=== PATIENT | female | born 1970 | race Asian ===

== ENCOUNTER 2018-12-28 12:33 | Inpatient (IN) ==
[2018-12-28] MEDS ORDERED: DiphenhydrAMINE HCL 50 MG/ML VIAL IV STA (13:36)
[2018-12-28] MEDS ORDERED: PROCHLORPERAZINE 1 ML IV ONE (13:36)
[2018-12-28] MEDS ORDERED: SODIUM CHLORIDE 0.9% 1000ML 1,000 ML IV ONE (13:36)
[2018-12-28 13:50] LABS: Basophils # (auto) 0.04 K/uL (0-0.2); Basophils % (auto) 0.4 %; Eosinophils # (auto) 0.31 K/uL (0-0.5); Eosinophils % (auto) 3.2 %; Hematocrit (blood only) 34.7 % (37-47); Hemoglobin 10.9 g/dL (12.0-16.0); Immature Granulocytes # (auto) 0.04 K/uL (0.00-0.02); Immature Granulocytes % (auto) 0.4 %; Lymphocytes # (auto) 2.54 K/uL (1.2-3.4); Lymphocytes % (auto) 26.2 %; Mean Corpuscular Hgb Conc 31.4 g/dL (32-36); Mean Corpuscular Volume 77.6 fL (80-100); Mean Platelet Volume 11.2 fL (7.4-10.4); Monocytes % (auto) 5.1 %; Neutrophils # (auto) 6.28 K/uL (1.4-6.5); Neutrophils % (auto) 64.7 %; Platelet Count 294 K/uL (130-400); RDW Coefficient of Variation 22.8 % (11.5-14.5); RDW Standard Deviation 64.7 fL (36.4-46.3); Red Blood Count 4.47 M/uL (4.2-5.4); White Blood Count 9.71 K/uL (4.8-10.8)
--- NOTE | 2018-12-28 13:56 | XRay Report ---
XR chest 1V portable HISTORY: Atypical chest pain COMPARISON: Chest 02/19/2018. FINDINGS: There are low lung volumes. The heart remains enlarged. Mild central pulmonary vascular con gestion without overt edema. No new focal lung consolidations to suggest pneumonia. No pleural effusi ons. No pneumothorax. IMPRESSION: Cardiomegaly with mild central pulmonary vascular congestion. This is similar to the prior study. Electronically signed by: Chris Barba M.D. 12/28/2018 1:55 PM
[2018-12-28 13:58] LABS: Alanine Aminotransferase 14 U/L (12-78); Albumin Level 3.5 gm/dl (3.4-5.0); Aspartate Aminotransferase 12 U/L (15-37); BUN Creatinine Ratio 11.4 (10-20); Blood Urea Nitrogen 8 mg/dl (7-18); Carbon Dioxide 22 mmol/L (21-32); Chloride 106 mmol/L (98-107); Creatinine Clr Calc Pharmacy 126.6 ml/min; Est GFR (African American) 121.6; Est GFR (Non-African American) 104.9; Glucose 130 mg/dl (70-99); Potassium 3.8 mmol/L (3.5-5.1); Sodium 136 mmol/L (136-145)
[2018-12-28 14:03] LABS: Albumin Globulin Ratio 0.8 (0.9-2); Alkaline Phosphatase 75 U/L (45-117); Bilirubin,Total 1.2 mg/dl (0.2-1); Globulin 4.4 gm/dl (2.5-4.0); Total Protein 7.9 gm/dl (6.4-8.2); Troponin I < 0.015 ng/ml (0-0.045)
[2018-12-28 14:04] LABS: INR 1.2 (0.9-1.1); Partial Thromboplastin Ratio 0.9; Partial Thromboplastin Time 24.8 Seconds (21.0-31.0); Prothrombin Time 12.4 Seconds (9.0-12.0)
[2018-12-28 14:11] LABS: Anisocytosis Present
[2018-12-28 14:23] LABS: Appearance Urine Clear (Clear); Bilirubin Urine Negative (Negative); Blood Urine Negative (Negative); Color Urine Yellow; Glucose Urine UA Negative (Negative); Ketones Urine Negative (Negative); Leukocyte Esterase Urine Negative (Negative); Nitrite Urine Negative (Negative); Protein Urine Negative (Negative); Specific Gravity Urine 1.005 (1.000-1.030); Urobilinogen Urine Negative (Negative); pH Urine >= 9.0 (4.5-7.5)
--- NOTE | 2018-12-28 14:35 | CT Scan Report ---
CT head/brain wo con CLINICAL HISTORY: 48 years-old Female with acute headache. Acute headache TECHNIQUE: Multiple axial CT images of the head were obtained without contrast. A dose lowering tech nique was utilized adhering to the principles of ALARA. CT DOSE: 1054.20 mGy.cm COMPARISON: CT cervical spine of same day FINDINGS: Cavum septum pellucidum. Study is mildly motion degraded. No acute intracranial hemorrhage, midline s hift, intracranial mass, hydrocephalus, territorial ischemia or abnormal extra-axial collection. The calvarium is intact. The paranasal sinuses, mastoid air cells, and middle ear cavities are clear . IMPRESSION: Mildly motion degraded exam without acute intracranial abnormality identified. The above report was generated using voice recognition software. It may contain grammatical, syntax o r spelling errors. Electronically signed by: Riaz Madrid M.D. 12/28/2018 2:34 PM
--- NOTE | 2018-12-28 14:41 | CT Scan Report ---
CT cervical spine wo con CLINICAL HISTORY: 48 years-old Female presenting with acute headache and neck pain. TECHNIQUE: Multidetector CT of the cervical spine was performed without the use of intravenous contra st. IV contrast: None. One or more dose lowering techniques were used consistent with the principles of ALARA (as low as reasonably achievable), including automatic exposure control, mA or kV adjustment to individual patient size, and/or use of iterative reconstruction. COMPARISON: None. CT DOSE (mGy.cm): The estimated cumulative dose is 1054.20. FINDINGS: [employer] Grade Teacher topogram: Unremarkable. Straightening of normal cervical lordosis likely positional. Vertebral bodies maintain normal height and alignment. Intervertebral disc heights preserved. No osseous spinal canal or neural foraminal jyoti rowing. No degenerative change. No acute fracture or subluxation. Visualized portion of the skull bas e intact. Paraspinal soft tissues normal. Lung apices clear. IMPRESSION: No acute osseous injury of the cervical spine. Electronically signed by: Royal Garland M.D. 12/28/2018 2:40 PM
[2018-12-28] MEDS ORDERED: dilTIAZem HCl 5 MG/ML 5 ML VIAL IV ONE (15:32)
[2018-12-28] MEDS ORDERED: dilTIAZem HCl 125 MG in DEXTROSE 5% 100 ML IV ONE (15:45)
--- NOTE | 2018-12-28 15:46 | Emergency Department Note ---
History of Present Illness General Chief Complaint: Headache Stated Complaint: HEADACHE, VOMITING, DIZZY Time Seen by Provider: 12/28/18 12:59 Source: patient Mode of arrival: ambulatory Limitations: language barrier (pt. daughter translates via phone) History of Present Illness Provider complaint: + headache Onset (ago): hour(s) 4 Onset description: + gradual Location: + diffuse Severity: severe Maximum Pain Intensity: 9 Current Pain Intensity: 5 Quality: + throbbing and + squeezing Relieved By: + rest and + dark room Exacerbated By: + exertion, + movement of head/neck, + light and + noise Context: + occurred at rest Associated symptoms: + nausea, + photophobia, + tingling, + numbness, + chest pain, + shortness of breath and + lightheadedness Treatments prior to arrival: + other (ASA) This 48-year-old female patient with significant past medical history of type 2 diabetes and hyperlipidemia, presents to the emergency department today with complaints of dizziness, headache, nausea, chest pain, and difficulty breathing. The patient states she awoke this morning feeling well. She got up to go to the bathroom to get ready for work and she developed dizziness, pressure in her head, and stumbled. She started to get ready for work, but the dizziness worsened. The patient states the symptoms were worse with rotating her head. At this time, she felt that her tongue was numb and either her upper or lower lip was numb. The patient states the left side of her body felt numb and tingling, but she continued to be able to lift and move the extremities. She went back to bed and rested for approximately 90 minutes. Upon arrival to the ED, the patient states the headache and numbness has improved. She continues to experience some mild numbness in her left fingers, but otherwise denies any symptoms in the arm and left leg. The patient states the chest pain is like a pressure sensation, similar in nature to what she has experienced in the past associated with anxiety. The patient states earlier, she had some blurry vision , but this has improved at this time. She denies any recent fall or trauma. She does report a history of questionable atrial fibrillation, but states she was then advised to discontinue the blood thinners after a monitor. She has not been on any blood thinners or aspirin consistently for several months. Of note, the history was obtained with the assistance of the patient's daughter via phone as a company doctor, as the patient does not speak fluent Setswana. The patient denies any recent fever, cough, neck pain, vomiting, diarrhea, constipation, abdominal pain, weakness, or other concerning symptoms. Home Medications Home Medications Medication Instructions Recorded Confirmed Type fluticasone propion-salmeterol 1 inh INHALATION BID 02/19/18 12/28/18 History hydroxyzine pamoate 25 mg PO HS PRN 02/19/18 12/28/18 History metformin 1,000 mg PO BID 30 Days #60 tab 02/20/18 12/28/18 Rx Basaglar KwikPen U-100 Insulin 26 unit SUBCUT BID 07/24/18 12/28/18 History Combivent Respimat 1 puff INHALATION QID PRN 07/24/18 12/28/18 History atorvastatin 20 mg PO QAM 07/24/18 12/28/18 History metoprolol tartrate 50 mg PO BID 07/24/18 12/28/18 History alprazolam 0 mg PO HS PRN 12/28/18 12/28/18 History Allergies Allergy/AdvReac Type Severity Reaction Status Date / Time Pork/Porcine Containing AdvReac Unknown Unknown Verified 12/28/18 15:17 Products red meat AdvReac Unknown Unknown Uncoded 12/28/18 15:17 Past Med/Surg History Medical History Hypokalemia Hyperbilirubinemia Type 2 diabetes mellitus Anxiety no meds Hyperlipidemia Atrial fibrillation with RVR (Acute) Anemia Asthma inhaler prn Chronic back pain Hypertension Social History Preferred Language: Danish Communication Ability: Effective Hearing Ability: Normal Quick Technician Required: Yes Beliefs That Will Affect Care: None marital status: Current Living Situation: Spouse current occupational status: employed current occupation: Self-employed with Feels Safe at Home: Yes Smoking Status: Never smoker Second Hand Exposure: Yes (as a child had relatives that smoked around her) ; Hx Alcohol Use: No Hx Substance Use: No Review of Systems A total of 10 systems reviewed and were otherwise negative Physical Exam Vital Signs Vital Signs - 24 hr 12/28/18 12:40 12/28/18 12:59 12/28/18 13:08 Temperature 36.5 C Temperature Source Oral Sepsis Recent Fever Within 48 Hours No Sepsis Action Taken by Nursing No Action Required Pulse Rate 73 55 L 55 L Pulse Rate [Apical] Pulse Rate from SpO2 Sensor Pulse Rhythm [Apical] Pulse Strength [Apical] Respiratory Rate 20 20 17 Respiratory Effort / Characteristics Respiratory Depth Shallow Respiratory Pattern Regular Blood Pressure 157/91 H 122/78 Blood Pressure [Left Arm] Blood Pressure Mean 113 92 Blood Pressure Mean [Left Arm] Blood Pressure Position [Left Arm] Pulse Oximetry 100 Oxygen Delivery Method Room Air 12/28/18 13:10 12/28/18 13:20 12/28/18 13:30 Temperature Temperature Source Sepsis Recent Fever Within 48 Hours Sepsis Action Taken by Nursing Pulse Rate 54 L 55 L 55 L Pulse Rate [Apical] Pulse Rate from SpO2 Sensor Pulse Rhythm [Apical] Pulse Strength [Apical] Respiratory Rate 14 12 17 Respiratory Effort / Characteristics Respiratory Depth Respiratory Pattern Blood Pressure Blood Pressure [Left Arm] Blood Pressure Mean Blood Pressure Mean [Left Arm] Blood Pressure Position [Left Arm] Pulse Oximetry Oxygen Delivery Method 12/28/18 13:40 12/28/18 13:50 12/28/18 14:28 Temperature Temperature Source Sepsis Recent Fever Within 48 Hours Sepsis Action Taken by Nursing Pulse Rate 58 L 65 62 Pulse Rate [Apical] Pulse Rate from SpO2 Sensor 61 Pulse Rhythm [Apical] Pulse Strength [Apical] Respiratory Rate 17 22 22 Respiratory Effort / Characteristics Respiratory Depth Respiratory Pattern Blood Pressure Blood Pressure [Left Arm] Blood Pressure Mean Blood Pressure Mean [Left Arm] Blood Pressure Position [Left Arm] Pulse Oximetry 98 Oxygen Delivery Method 12/28/18 14:30 12/28/18 14:40 12/28/18 14:50 Temperature Temperature Source Sepsis Recent Fever Within 48 Hours Sepsis Action Taken by Nursing Pulse Rate 72 59 L 90 Pulse Rate [Apical] Pulse Rate from SpO2 Sensor 69 62 81 Pulse Rhythm [Apical] Pulse Strength [Apical] Respiratory Rate 15 20 21 Respiratory Effort / Characteristics Respiratory Depth Respiratory Pattern Blood Pressure Blood Pressure [Left Arm] Blood Pressure Mean Blood Pressure Mean [Left Arm] Blood Pressure Position [Left Arm] Pulse Oximetry 99 98 98 Oxygen Delivery Method 12/28/18 14:57 12/28/18 14:58 12/28/18 15:00 Temperature Temperature Source Sepsis Recent Fever Within 48 Hours Sepsis Action Taken by Nursing Pulse Rate 81 79 Pulse Rate [Apical] 81 Pulse Rate from SpO2 Sensor 76 77 Pulse Rhythm [Apical] Regular Pulse Strength [Apical] Normal Respiratory Rate 15 18 18 Respiratory Effort / Characteristics Non-Labored Spontaneous Respiratory Depth Normal Respiratory Pattern Regular Blood Pressure 178/95 H Blood Pressure [Left Arm] 178/95 H Blood Pressure Mean 122 Blood Pressure Mean [Left Arm] 122 Blood Pressure Position [Left Arm] Lying Pulse Oximetry 96 98 98 Oxygen Delivery Method Room Air 12/28/18 15:10 12/28/18 15:21 12/28/18 15:26 Temperature Temperature Source Sepsis Recent Fever Within 48 Hours Sepsis Action Taken by Nursing Pulse Rate 65 86 Pulse Rate [Apical] Pulse Rate from SpO2 Sensor 65 80 96 H Pulse Rhythm [Apical] Pulse Strength [Apical] Respiratory Rate 18 24 Respiratory Effort / Characteristics Respiratory Depth Respiratory Pattern Blood Pressure 186/116 H Blood Pressure [Left Arm] Blood Pressure Mean 139 Blood Pressure Mean [Left Arm] Blood Pressure Position [Left Arm] Pulse Oximetry 95 95 96 Oxygen Delivery Method 12/28/18 15:30 12/28/18 15:40 12/28/18 15:41 Temperature Temperature Source Sepsis Recent Fever Within 48 Hours Sepsis Action Taken by Nursing Pulse Rate 132 H 111 H 126 H Pulse Rate [Apical] Pulse Rate from SpO2 Sensor 101 H 101 H 108 H Pulse Rhythm [Apical] Pulse Strength [Apical] Respiratory Rate 18 19 23 Respiratory Effort / Characteristics Respiratory Depth Respiratory Pattern Blood Pressure 125/91 Blood Pressure [Left Arm] Blood Pressure Mean 102 Blood Pressure Mean [Left Arm] Blood Pressure Position [Left Arm] Pulse Oximetry 96 96 96 Oxygen Delivery Method 12/28/18 15:44 12/28/18 15:50 12/28/18 16:00 Temperature Temperature Source Sepsis Recent Fever Within 48 Hours Sepsis Action Taken by Nursing Pulse Rate 121 H 114 H 123 H Pulse Rate [Apical] Pulse Rate from SpO2 Sensor 104 H 110 H 118 H Pulse Rhythm [Apical] Pulse Strength [Apical] Respiratory Rate 17 18 14 Respiratory Effort / Characteristics Respiratory Depth Respiratory Pattern Blood Pressure 165/110 H 174/132 H Blood Pressure [Left Arm] Blood Pressure Mean 128 146 Blood Pressure Mean [Left Arm] Blood Pressure Position [Left Arm] Pulse Oximetry 96 97 97 Oxygen Delivery Method 12/28/18 16:10 12/28/18 16:17 12/28/18 16:20 Temperature Temperature Source Sepsis Recent Fever Within 48 Hours Sepsis Action Taken by Nursing Pulse Rate 127 H 122 H 143 H Pulse Rate [Apical] Pulse Rate from SpO2 Sensor 104 H 100 H 120 H Pulse Rhythm [Apical] Pulse Strength [Apical] Respiratory Rate 17 19 19 Respiratory Effort / Characteristics Respiratory Depth Respiratory Pattern Blood Pressure 190/84 H Blood Pressure [Left Arm] Blood Pressure Mean 119 Blood Pressure Mean [Left Arm] Blood Pressure Position [Left Arm] Pulse Oximetry 96 97 97 Oxygen Delivery Method VITALS: Vitals are noted on the nurse's note and reviewed by myself. The patient is normotensive, afebrile, and no tachycardia noted. GENERAL: This is a 48-year-old female, in no acute distress, nondiaphoretic, well-developed well-nourished. The patient is resting comfortably in the bed. SKIN: The skin was without rashes, erythema, edema, or bruising. There is no tenting of the skin. Capillary reflex less than 2 seconds. HEAD: Normocephalic atraumatic. No tenderness to palpation. EARS: External auditory canals clear, tympanic membranes pearly sethi without erythema or effusion bilaterally. Negative santiago sign. No hemotympanum. EYES: Pupils equal round and reactive to light and accommodation. Conjunctivae without injection, sclerae without icterus. Extraocular movements intact. No nystagmus noted. No swelling or discoloration of the tissue surrounding the eyes. Mild light sensitivity. NOSE: Patent, turbinates without inflammation or discharge. No sinus tenderness. MOUTH: Mucous membranes moist. Tonsils are not enlarged. Pharynx without erythema or exudate. Uvula midline. Airway patent. Tongue does not deviate. NECK: Supple without nuchal rigidity. No lymphadenopathy. No thyromegaly. Cervical spine is nontender. No JVD. HEART: Regular rate and rhythm without murmurs gallops or rubs. LUNGS: Clear to auscultation bilaterally without wheezes, rales or rhonchi. No dullness to percussion. No retractions or accessory muscle use. ABDOMEN: Positive bowel sounds x 4. Normal tympanic percussion. Soft, nontender, without masses or organomegaly. Alfred sign negative. No guarding or rebound tenderness. MUSCULOSKELETAL: No muscle atrophy, erythema, or edema noted. Full range of motion without joint tenderness in all extremities. No tenderness to palpation. Normal gait. Strength 5/5 throughout. NEURO: Patient was alert and oriented to person place and time. Normal sen sation to light and sharp touch in all extremities. Deep tendon reflexes 2+ throughout. No focal neurological deficits. Cranial nerves II through XII grossly intact. Normal cerebellar function. Course The patient was seen and evaluated as above. IV access obtained, labs drawn. Patient medicated with IV fluids, Benadryl, Compazine. Imaging performed and reviewed by myself and radiologist as above. Labs reviewed by myself. I was called by the RN to reassess the patient as she was complaining of left sided muscle spasms and paresthesias. I discussed the findings with the patient at bedside. She was reassessed. There are left-sided muscle spasms in both of the extremities. The patient's headache has significantly improved. Her dizziness has significantly improved. She denies any significant nausea. I discussed the case with my attending. We did elect to order an MRI. I updated the patient. I was contacted by the nurse at this time that the patient's heart rate has increased and it appears that she is in A. fib. I reassessed the patient. She is complaining of some chest pain. Heart rate is in the 140s. Blood pressure is elevated at 180 systolic. EKG being performed by RN at this time. I contacted Dr. Snyder and asked him to evaluate the patient, given this new finding. He did accompany me to the bedside. EKG reviewed by myself and Dr. Snyder and shows atrial fibrillation RVR. The patient was given 10 mg IV Cardizem. Heart rate and blood pressure did improve. Patient was started on 10 mg/h IV Cardizem drip. I spoke with the telephonic case manager. Recommended admission for A. fib RVR and strokelike symptoms. I contacted the [facility] hospitalist. Spoke with OLIVERIO Roland. She agreed to see and evaluate the patient. Please see hospitalist dictation regarding ongoing management care of this patient. Administered Medications Diltiazem HCl 125 mg/ Dextrose 125 mls @ 10 mls/hr IV .[id number] ONE; Protocol Stop: 12/29/18 04:14 Last Titration: 12/28/18 16:21 Dose: 15 mg/hr, 15 mls/hr Documented by: [id number] Admin: 12/28/18 15:58 Dose: 10 mg/hr, 10 mls/hr Documented by: [id number] Cosigned by: [id number] Discontinued Medications Diltiazem HCl (Cardizem) Confirm Administered Dose 25 mg IV .STK-MED ONE Stop: 12/28/18 15:33 Last Increment: 12/28/18 15:36 Dose: 10 mg Documented by: [id number] Cosigned by: [id number] Diphenhydramine HCl (Benadryl) 25 mg IV NOW STA Stop: 12/28/18 13:37 Last Admin: 12/28/18 14:02 Dose: 25 mg Documented by: [id number] Prochlorperazine (Compazine) 1 mls @ 1 mls/min IV ONE ONE Stop: 12/28/18 13:37 Last Admin: 12/28/18 14:02 Dose: 1 mls/min Documented by: [id number] Sodium Chloride (Nss 1000ml) 1,000 mls @ 999 mls/hr IV .[id number] ONE Stop: 12/28/18 14:36 Last Infusion: 12/28/18 15:49 Dose: 0 mls/hr Documented by: [id number] Admin: 12/28/18 14:02 Dose: 999 mls/hr Documented by: [id number] Medical Decision Making Differential Diagnosis + migraine, + tension headache, + subarachnoid hemorrhage, + headache, + meningitis, + sinusitis, + postconcussion syndrome, + normal pressure hydrocephalus, + CVA, + ICH, + SAH, + encephalitis and + tumor In addition to the above, lyme disease, thyroid abnormality, cardiac ischemia, aortic dissection, pulmonary embolism, pneumonia, pneumothorax, musculoskeletal, infections, gastrointestinal, as well as others were entertained. Home Medications Current Medication List: was personally reviewed by me Laboratory Data Attestation: I reviewed the patient's lab results. No leukocytosis, significant anemia, thrombocytopenia. Renal, hepatic function, and electrolytes without significant abnormality. INR mildly elevated 1.2. Troponin negative. ESR elevated at 71. TSH 1.450. Lyme disease testing negative. Urinalysis negative for evidence of blood or infection. Result diagrams: 12/28/18 12:56 12/28/18 12:56 Lab Results 12/28/18 12/28/18 12/28/18 Range/Units 12:56 12:56 12:56 WBC 9.71 (4.8-10.8) K/uL RBC 4.47 (4.2-5.4) M/uL Hgb 10.9 L (12.0-16.0) g/dL Hct 34.7 L (37-47) % MCV 77.6 L (80-100) fL MCH 24.4 L (25-34) pg MCHC 31.4 L (32-36) g/dL RDW Std Deviation 64.7 H (36.4-46.3) fL RDW Coeff of Jimenez 22.8 H (11.5-14.5) % Plt Count 294 (130-400) K/uL MPV 11.2 H (7.4-10.4) fL Immature Gran % (Auto) 0.4 % Neut % (Auto) 64.7 % Lymph % (Auto) 26.2 % [place] % (Auto) 5.1 % Eos % (Auto) 3.2 % Baso % (Auto) 0.4 % Immature Gran # (Auto) 0.04 H (0.00-0.02) K/uL Neut # (Auto) 6.28 (1.4-6.5) K/uL Lymph # (Auto) 2.54 (1.2-3.4) K/uL [place] # (Auto) 0.50 (0.11-0.59) K/uL Eos # (Auto) 0.31 (0-0.5) K/uL Baso # (Auto) 0.04 (0-0.2) K/uL Anisocytosis Present ESR (0-21) mm/hr PT 12.4 H (9.0-12.0) Seconds INR 1.2 H (0.9-1.1) APTT 24.8 (21.0-31.0) Seconds PTT Ratio 0.9 Sodium 136 (136-145) mmol/L Potassium 3.8 (3.5-5.1) mmol/L Chloride 106 (98-107) mmol/L Carbon Dioxide 22 (21-32) mmol/L Anion Gap 8.0 (3-11) BUN 8 (7-18) mg/dl Creatinine 0.68 (0.6-1.2) mg/dl Est Cr Clr Drug Dosing 126.6 ml/min Est GFR ( Amer) 121.6 Est GFR (Non-Af Amer) 104.9 BUN/Creatinine Ratio 11.4 (10-20) Glucose 130 H (70-99) mg/dl Calcium 9.0 (8.5-10.1) mg/dl Magnesium 2.0 (1.8-2.4) mg/dl Total Bilirubin 1.2 H (0.2-1) mg/dl AST 12 L (15-37) U/L ALT 14 (12-78) U/L Alkaline Phosphatase 75 (45-117) U/L Troponin I < 0.015 (0-0.045) ng/ml Total Protein 7.9 (6.4-8.2) gm/dl Albumin 3.5 (3.4-5.0) gm/dl Globulin 4.4 H (2.5-4.0) gm/dl Albumin/Globulin Ratio 0.8 L (0.9-2) TSH (0.300-4.500) uIu/ml Urine Color Urine Appearance (Clear) Urine pH (4.5-7.5) Ur Specific [place] (1.000-1.030) Urine Protein (Negative) Urine Glucose (UA) (Negative) Urine Ketones (Negative) Urine Blood (Negative) Urine Nitrite (Negative) Urine Bilirubin (Negative) Urine Urobilinogen (Negative) Ur Leukocyte Esterase (Negative) Lyme Disease IgG Ab (Negative) Lyme Disease IgM Ab (Negative) 12/28/18 12/28/18 12/28/18 Range/Units 12:56 12:56 12:56 WBC (4.8-10.8) K/uL RBC (4.2-5.4) M/uL Hgb (12.0-16.0) g/dL Hct (37-47) % MCV (80-100) fL MCH (25-34) pg MCHC (32-36) g/dL RDW Std Deviation (36.4-46.3) fL RDW Coeff of Jimenez (11.5-14.5) % Plt Count (130-400) K/uL MPV (7.4-10.4) fL Immature Gran % (Auto) % Neut % (Auto) % Lymph % (Auto) % [place] % (Auto) % Eos % (Auto) % Baso % (Auto) % Immature Gran # (Auto) (0.00-0.02) K/uL Neut # (Auto) (1.4-6.5) K/uL Lymph # (Auto) (1.2-3.4) K/uL [place] # (Auto) (0.11-0.59) K/uL Eos # (Auto) (0-0.5) K/uL Baso # (Auto) (0-0.2) K/uL Anisocytosis ESR 71 H (0-21) mm/hr PT (9.0-12.0) Seconds INR (0.9-1.1) APTT (21.0-31.0) Seconds PTT Ratio Sodium (136-145) mmol/L Potassium (3.5-5.1) mmol/L Chloride (98-107) mmol/L Carbon Dioxide (21-32) mmol/L Anion Gap (3-11) BUN (7-18) mg/dl Creatinine (0.6-1.2) mg/dl Est Cr Clr Drug Dosing ml/min Est GFR ( Amer) Est GFR (Non-Af Amer) BUN/Creatinine Ratio (10-20) Glucose (70-99) mg/dl Calcium (8.5-10.1) mg/dl Magnesium (1.8-2.4) mg/dl Total Bilirubin (0.2-1) mg/dl AST (15-37) U/L ALT (12-78) U/L Alkaline Phosphatase (45-117) U/L Troponin I (0-0.045) ng/ml Total Protein (6.4-8.2) gm/dl Albumin (3.4-5.0) gm/dl Globulin (2.5-4.0) gm/dl Albumin/Globulin Ratio (0.9-2) TSH 1.450 (0.300-4.500) uIu/ml Urine Color Urine Appearance (Clear) Urine pH (4.5-7.5) Ur Specific [place] (1.000-1.030) Urine Protein (Negative) Urine Glucose (UA) (Negative) Urine Ketones (Negative) Urine Blood (Negative) Urine Nitrite (Negative) Urine Bilirubin (Negative) Urine Urobilinogen (Negative) Ur Leukocyte Esterase (Negative) Lyme Disease IgG Ab Negative (Negative) Lyme Disease IgM Ab Negative (Negative) 12/28/18 Range/Units 14:00 WBC (4.8-10.8) K/uL RBC (4.2-5.4) M/uL Hgb (12.0-16.0) g/dL Hct (37-47) % MCV (80-100) fL MCH (25-34) pg MCHC (32-36) g/dL RDW Std Deviation (36.4-46.3) fL RDW Coeff of Jimenez (11.5-14.5) % Plt Count (130-400) K/uL MPV (7.4-10.4) fL Immature Gran % (Auto) % Neut % (Auto) % Lymph % (Auto) % [place] % (Auto) % Eos % (Auto) % Baso % (Auto) % Immature Gran # (Auto) (0.00-0.02) K/uL Neut # (Auto) (1.4-6.5) K/uL Lymph # (Auto) (1.2-3.4) K/uL [place] # (Auto) (0.11-0.59) K/uL Eos # (Auto) (0-0.5) K/uL Baso # (Auto) (0-0.2) K/uL Anisocytosis ESR (0-21) mm/hr PT (9.0-12.0) Seconds INR (0.9-1.1) APTT (21.0-31.0) Seconds PTT Ratio Sodium (136-145) mmol/L Potassium (3.5-5.1) mmol/L Chloride (98-107) mmol/L Carbon Dioxide (21-32) mmol/L Anion Gap (3-11) BUN (7-18) mg/dl Creatinine (0.6-1.2) mg/dl Est Cr Clr Drug Dosing ml/min Est GFR ( Amer) Est GFR (Non-Af Amer) BUN/Creatinine Ratio (10-20) Glucose (70-99) mg/dl Calcium (8.5-10.1) mg/dl Magnesium (1.8-2.4) mg/dl Total Bilirubin (0.2-1) mg/dl AST (15-37) U/L ALT (12-78) U/L Alkaline Phosphatase (45-117) U/L Troponin I (0-0.045) ng/ml Total Protein (6.4-8.2) gm/dl Albumin (3.4-5.0) gm/dl Globulin (2.5-4.0) gm/dl Albumin/Globulin Ratio (0.9-2) TSH (0.300-4.500) uIu/ml Urine Color Yellow Urine Appearance Clear (Clear) Urine pH >= 9.0 H (4.5-7.5) Ur Specific [place] 1.005 (1.000-1.030) Urine Protein Negative (Negative) Urine Glucose (UA) Negative (Negative) Urine Ketones Negative (Negative) Urine Blood Negative (Negative) Urine Nitrite Negative (Negative) Urine Bilirubin Negative (Negative) Urine Urobilinogen Negative (Negative) Ur Leukocyte Esterase Negative (Negative) Lyme Disease IgG Ab (Negative) Lyme Disease IgM Ab (Negative) Imaging Data Radiologist's Impression: XR chest 1V portable HISTORY: Atypical chest pain COMPARISON: Chest 02/19/2018. FINDINGS: There are low lung volumes. The heart remains enlarged. Mild central pulmonary vascular congestion without overt edema. No new focal lung consolidations to suggest pneumonia. No pleural effusions. No pneumothorax. IMPRESSION: Cardiomegaly with mild central pulmonary vascular congestion. This is similar to the prior study. Electronically signed by: Chris Barba M.D. 12/28/2018 1:[address] head/brain wo con CLINICAL HISTORY: 48 years-old Female with acute headache. Acute headache TECHNIQUE: Multiple axial CT images of the head were obtained without contrast. A dose lowering technique was utilized adhering to the principles of ALARA. CT DOSE: 1054.20 mGy.cm COMPARISON: CT cervical spine of same day FINDINGS: Cavum septum pellucidum. Study is mildly motion degraded. No acute intracranial hemorrhage, midline shift, intracranial mass, hydrocephalus, territorial ischemia or abnormal extra-axial collection. The calvarium is intact. The paranasal sinuses, mastoid air cells, and middle ear cavities are clear. IMPRESSION: Mildly motion degraded exam without acute intracranial abnormality identified. The above report was generated using voice recognition software. It may contain grammatical, syntax or spelling errors. Electronically signed by: Riaz Madrid M.D. 12/28/2018 2:[address] cervical spine wo con CLINICAL HISTORY: 48 years-old Female presenting with acute headache and neck pain. TECHNIQUE: Multidetector CT of the cervical spine was performed without the use of intravenous contrast. IV contrast: None. One or more dose lowering techniques were used consistent with the principles of ALARA (as low as reasonably achievable), including automatic exposure control, mA or kV adjustment to individual patient size, and/or use of iterative reconstruction. COMPARISON: None. CT DOSE (mGy.cm): The estimated cumulative dose is 1054.20. FINDINGS: Manager Of Tax topogram: Unremarkable. Straightening of normal cervical lordosis likely positional. Vertebral bodies maintain normal height and alignment. Intervertebral disc heights preserved. No osseous spinal canal or neural foraminal narrowing. No degenerative change. No acute fracture or subluxation. Visualized portion of the skull base intact. Paraspinal soft tissues normal. Lung apices clear. IMPRESSION: No acute osseous injury of the cervical spine. Electronically signed by: Royal Garland M.D. 12/28/2018 2:40 PM ECG Data Attestation: I personally reviewed and interpreted this ECG as follows: Indication: chest pain Rate (beats per minute): 60 Rhythm: normal sinus Findings: + T-wave inversion (anterolateral leads); no ST elevation and no acute ischemic change Comparison ECG Date: from (03/09) Change: the following changes noted (inverted T-waves now present) Additional Comments: Repeat EKG performed when elevated HR noticed and showed afib RVR ventricular rate of 120 with no acute ischemic changes. Blood Pressure Blood Pressure Findings: Elevated blood pressure Blood Pressure Disposition: further management by hospitalist Head Trauma GCS Score: 15 MDM Narrative This 48-year-old patient presents emergency department today complaining of headache, dizziness, nausea primarily. She had onset approximately 4 hours prior to arrival. Her symptoms have significantly improved since arrival. She has not had any objective weakness and is a stroke scale 0, per my examination. Initial concern was for atypical migraine, however I was concerned for stroke given the patient's history and symptoms. The patient was initially treated with Benadryl, Compazine, and IV fluids. Labs reviewed and without significant abnormality. Very mild anemia noted. Imaging reviewed with no significant acute changes, no evidence of ICH, or CT evidence of stroke. The patient was reassessed and developed some improvement in her headache, dizziness, nausea, but is now complaining of muscle spasms and the left extremities. I am still concerned for possible stroke, so elected to order an MRI of the brain for evaluation. After this order placed, I received a call from the nurse that the patient had developed A. fib with RVR and tachycardia at 140 bpm. I did immediately evaluate the patient. She is experiencing some chest pain and dyspnea at this time as well as palpitations. I discussed the case with Dr. Snyder, who did also see and evaluate the patient immediately. The patient was given 10 mg IV Cardizem which did improve her blood pressure and heart rate, and a Cardizem drip initiated. I have increased suspicion for stroke at this time given the likelihood that the patient has had untreated intermittent atrial fibrillation, as her blood thinners were discontinued over the past year. The patient will be admitted to the hospitalist service for evaluation of strokelike symptoms and new onset A. fib RVR. She was admitted to the hospitalist service prior to MRI results. The chart was completed utilizing [employer] voice recognition software. Grammatical errors, random word insertions, pronoun errors, and incomplete sentences are an occasional consequence of this system due to software limitations, ambient noise, and hardware issues. Any formal questions or concerns about the content, text, or information contained within the body of this dictation should be directly addressed to the provider for clarification. Impression & Plan Atrial fibrillation with RVR, Stroke-like symptom, Hyperlipidemia, Type 2 diabetes mellitus, Headache Critical Care Time Critical Care Time: Yes Total Critical Care Time: 45 I have personally spent greater than 45 minutes of critical care time in the direct management of this patient. This includes bedside care, interpretation of diagnostic studies, and testing, discussion with consultants, patient, and family members, and other required patient management activities. This 45 minutes is in excess of all separately billable procedures. Discharge Plan Visit Data Chief Complaint: Headache Stated Complaint: HEADACHE, VOMITING, DIZZY ED Provider: Randy Snyder ED Midlevel Provider: Nirmala Moore Discharge Problem: Atrial fibrillation with RVR, Stroke-like symptom, Hyperlipidemia, Type 2 diabetes mellitus, Headache Patient Disposition: Admitted As Inpatient Condition: Good Forms Stand Alone Forms: [email or web address] Prescriptions Prescriptions: No Action fluticasone propion-salmeterol 250-50 mcg/dose Blister With Device 1 inh INHALATION BID RF: 0 hydroxyzine pamoate 25 mg Capsule 25 mg PO HS PRN (Reason: Itching) RF: 0 metformin 1,000 mg Tablet 1,000 mg PO BID 30 Days Qty: 60 RF: 2 alprazolam 0.25 mg Tablet PO HS PRN (Reason: Anxiety) RF: 0 metoprolol tartrate 25 mg Tablet 50 mg PO BID RF: 0 atorvastatin 20 mg tablet 20 mg PO QAM RF: 0 Basaglar KwikPen U-100 Insulin 100 unit/mL (3 mL) Insulin Pen 26 unit SUBCUT BID RF: 0 Combivent Respimat 20-100 mcg/actuation Mist 1 puff INHALATION QID PRN (Reason: Wheezing) RF: 0 Referrals Referrals: Kemi Crystal MD [Primary Care Provider] -
--- NOTE | 2018-12-28 15:46 | Emergency Department Note ---
ED Visit Note I did evaluate and examine this patient myself. I did guide management for the patient. I agree with the PA's assessment as discussed. Please see the PAs dictation for further details. I was called to the bedside by the PA because the patient developed tachycardia. Twelve-lead EKG per my interpretation demonstrates atrial fibrillation with RVR. She did have normal sinus rhythm prior to that. Review of the old chart demonstrated that she did have atrial fibrillation on a prior visit here. She is not on any blood thinners. She has been having chest pain since this morning. I did independently review the CT scan and blood work. There is no evidence of stroke on CT of the head. Blood work shows a negative troponin. Patient was given a bolus of Cardizem which slowed her heart rate down. She is subsequently placed on a Cardizem drip. She will be admitted to the hospital for further care and evaluation for her A. fib with RVR and strokelike symptoms. .
[2018-12-28 16:16] LABS: Lyme Ab IgG w/WB Rflx Negative (Negative); Lyme Ab IgM w/WB Rflx Negative (Negative)
--- NOTE | 2018-12-28 17:32 | History & Physical Report ---
Date of Service December 28, 2018 Assessment & Plan (1) Paroxysmal atrial fibrillation: Paroxysmal atrial fibrillation with rapid ventricular response. Lytes & TSH normal. [id number] = 2. Neurologic symptoms may or may not be related to PAF. She did not take her morning dose of metoprolol. Continue diltiazem infusion. Resume metoprolol tartrate 50 mg twice daily. IV heparin. ? long-term anticoagulation. Consult Cardiology. (2) Stroke-like symptom: Left-sided paresthesia associated with headache. Possible migraine. Consider ischemic stroke. PAF as discussed above. Head CT negative. MRI pending. Symptoms improved in ED. Passed dysphagia screen. Took aspirin at home; continue aspirin 81 mg daily. Check lipid profile. Check carotid duplex and echo. PT/OT/HYDRAULIC MINER evaluations. Consult Neurology. (3) Hypertension: Continue metoprolol. (4) Asthma: Pulmonary status stable. (5) Type 2 diabetes mellitus: Diabetes mellitus type 2, managed with metformin and insulin. Random glucose 130. Check hemoglobin A1c. Lantus/NovoLog per protocol. (6) Hyperlipidemia: Check lipid profile. Continue atorvastatin. Increase dose to high intensity level if ischemic stroke confirmed. (7) DVT prophylaxis: IV heparin ordered for atrial fibrillation. Ambulate. (8) Discharge planning issues: Anticipated discharge to home. Internal Medicine follow-up with Dr. Hermelinda Ramirez. History of Present Illness Chief Complaint: left-sided paresthesiae Primary Care Provider: Kemi Crystal MD 48-year-old female followed by Dr. Kemi Crystal for Internal Medicine. History of paroxysmal atrial fibrillation, diabetes mellitus type 2, and other problems noted below. Hospitalized with atrial fibrillation in January 2018. Hypokalemic at that time. Managed with diltiazem infusion and converted to sinus rhythm. Transition to beta-blockade with metoprolol. Not anticoagulated because of low [id number] score. This morning around 9:30 AM she developed left-sided paresthesia and possible left-sided weakness. Symptoms associated with headache and dizziness. Also noted intermittent chest pressure, palpitations, and mild dyspnea. She took a low-dose aspirin. Came to the ED for evaluation. In the ED her symptoms improved without further intervention. Cardiac rhythm at time of presentation was normal sinus rhythm, but around 15;00 she was noted to be in atrial fibrillation with a rapid ventricular response. Cardizem infusion initiated. Allergies Allergy/AdvReac Type Severity Reaction Status Date / Time Pork/Porcine Containing AdvReac Unknown Unknown Verified 12/28/18 15:17 Products red meat AdvReac Unknown Unknown Uncoded 12/28/18 15:17 Home Medications Home Medications Medication Instructions Recorded Confirmed Type fluticasone propion-salmeterol 1 inh INHALATION BID 02/19/18 12/28/18 History hydroxyzine pamoate 25 mg PO HS PRN 02/19/18 12/28/18 History metformin 1,000 mg PO BID 30 Days #60 tab 02/20/18 12/28/18 Rx Basaglar KwikPen U-100 Insulin 26 unit SUBCUT BID 07/24/18 12/28/18 History Combivent Respimat 1 puff INHALATION QID PRN 07/24/18 12/28/18 History atorvastatin 20 mg PO QAM 07/24/18 12/28/18 History metoprolol tartrate 50 mg PO BID 07/24/18 12/28/18 History escitalopram oxalate 10 mg PO DAILY 12/28/18 12/28/18 History Past Med/Surg History Medical History Paroxysmal atrial fibrillation (Chronic) Hypertension (Chronic) Asthma (Chronic) inhaler prn Anemia (Chronic) Chronic back pain (Chronic) Type 2 diabetes mellitus (Chronic) Anxiety (Chronic) no meds Hyperlipidemia (Chronic) Atrial fibrillation with RVR (Acute) Surgical History No history of previous surgery (Chronic) Family History Mother Diabetes Father Hypertension Brother Heart disease Other No family history of adverse response to anesthesia No pertinent family history Social History Preferred Language: Malawian Communication Ability: Effective Hearing Ability: Normal Medical Staff Manager Required: Yes Beliefs That Will Affect Care: None marital status: Current Living Situation: Spouse current occupational status: employed current occupation: Self-employed with [employer] Safe at Home: Yes Smoking Status: Never smoker Second Hand Exposure: Yes (as a child had r elatives that smoked around her) ; Hx Alcohol Use: No Hx Substance Use: No Review of Systems Constitutional: no fever and no weight loss Eyes: no diplopia and no worsening vision Ear, Nose, Mouth, Throat: no nasal congestion, no sinus pain/pressure and no sore throat Respiratory: as per Subjective / HPI; no cough Cardiovascular: as per Subjective / HPI Gastrointestinal: + nausea; no vomiting, no constipation, no diarrhea/loose stools, no blood in stools and no melena Genitourinary: no dysuria and no hematuria Musculoskeletal: no joint pain and no myalgia Integumentary: no rash and no new lesions Neurologic: no headache(s) Endocrine: no polydipsia and no polyuria blood sugars well controlled Hematologic / Lymphatic: no easy bleeding, no easy bruising and no lymphadenopathy Physical Exam Constitutional: WD/WN, vitals as above no acute distress Eyes: PERRL, conjunctivae normal, anicteric sclerae ENMT: external ear and nose normal, oropharynx normal Neck: trachea midline, no thyromegaly Respiratory: normal respiratory effort, lungs clear to auscultation Cardiovascular: Rate/Rhythm: + irregularly irregular Heart Sounds: no gallop, no murmur and no cardiac rub Vessels: no JVD Extremities: normal capillary refill; no calf tenderness and no edema Gastrointestinal (Abdomen): normal bowel sounds, soft, nontender, no hepatosplenomegaly Musculoskeletal: Head/Neck/Chest: neck supple Extremities: strength 5/5 throughout; no cyanosis and no clubbing Skin: no rashes, warm and dry Neurologic: PERRL, EOMI no facial palsy no dysarthria or aphasia motor strength 5/5 bilat sensation to pin prick grossly intact bilat no difficulty with finger to nose or heal to wynn patellar DTR's 2/2 bilat Psychiatric: Orientation: alert and oriented x 3 Affect: euthymic affect Lymphatic: no cervical lymphadenopathy Results & Data Vital Signs (Past 12 Hours) Vital Signs Temp Pulse Pulse Resp BP BP Pulse Ox 12/28/18 17:20 123 H 16 97 12/28/18 17:15 118 H 19 125/95 94 12/28/18 17:10 122 H 20 94 12/28/18 17:05 102 H 19 149/113 H 94 12/28/18 17:00 127 H 26 H 12/28/18 16:50 117 H 13 98 12/28/18 16:45 120 H 24 164/127 H 97 12/28/18 16:40 76 16 95 12/28/18 16:34 125 H 12 99 12/28/18 16:33 114 H 22 140/113 H 97 12/28/18 16:31 121 H 14 97 12/28/18 16:30 113 H 19 12/28/18 16:20 143 H 19 97 12/28/18 16:17 122 H 19 190/84 H 97 12/28/18 16:10 127 H 17 96 12/28/18 16:00 123 H 14 174/132 H 97 12/28/18 15:50 114 H 18 97 12/28/18 15:44 121 H 17 165/110 H 96 12/28/18 15:41 126 H 23 96 12/28/18 15:40 111 H 19 125/91 96 12/28/18 15:30 132 H 18 96 12/28/18 15:26 86 24 186/116 H 96 12/28/18 15:21 95 12/28/18 15:10 65 18 95 12/28/18 15:00 79 18 98 12/28/18 14:58 81 18 178/95 H 98 12/28/18 14:57 81 15 178/95 H 96 12/28/18 14:50 90 21 98 12/28/18 14:40 59 L 20 98 12/28/18 14:30 72 15 99 12/28/18 14:28 62 22 98 12/28/18 13:50 65 22 12/28/18 13:40 58 L 17 12/28/18 13:30 55 L 17 12/28/18 13:20 55 L 12 12/28/18 13:10 54 L 14 12/28/18 13:08 55 L 17 12/28/18 12:59 55 L 20 122/78 12/28/18 12:40 36.5 C 73 20 157/91 H 100 Laboratory Results Short CBC 12/28/18 Range/Units 12:56 WBC 9.71 (4.8-10.8) K/uL Hgb 10.9 L (12.0-16.0) g/dL Hct 34.7 L (37-47) % Plt Count 294 (130-400) K/uL BMP 12/28/18 12:56 Sodium 136 Potassium 3.8 Chloride 106 Carbon Dioxide 22 BUN 8 Creatinine 0.68 Glucose 130 H Calcium 9.0 Cardiac Enzymes 12/28/18 Range/Units 12:56 Troponin I < 0.015 (0-0.045) ng/ml Liver Function 12/28/18 Range/Units 12:56 Total Bilirubin 1.2 H (0.2-1) mg/dl AST 12 L (15-37) U/L ALT 14 (12-78) U/L Alkaline Phosphatase 75 (45-117) U/L Albumin 3.5 (3.4-5.0) gm/dl Urine 12/28/18 Range/Units 14:00 Urine Color Yellow Urine Appearance Clear (Clear) Urine pH >= 9.0 H (4.5-7.5) Ur Specific [place] 1.005 (1.000-1.030) Urine Protein Negative (Negative) Urine Glucose (UA) Negative (Negative) Diagnostic Findings PORTABLE CHEST X-RAY IMPRESSION: Cardiomegaly with mild central pulmonary vascular congestion. This is similar to the prior study. Electronically signed by: Chris Barba M.D. 12/28/2018 1:[address] HEAD IMPRESSION: Mildly motion degraded exam without acute intracranial abnormality identified. The above report was generated using voice recognition software. It may contain grammatical, syntax or spelling errors. Electronically signed by: Riaz Madrid M.D. 12/28/2018 2:[address] CERVICAL SPINE IMPRESSION: No acute osseous injury of the cervical spine. Electronically signed by: Royal Garland M.D. 12/28/2018 2:40 PM ECG Additional Comments: EKG performed at 1245 reviewed and demonstrated normal sinus rhythm at 60/minute, inverted T wave V3, biphasic T waves V4, flattened T wave V5. EKG performed at 1529 reviewed and demonstrated atrial fibrillation at 120/minute with slight ST depression lateral precordial leads. Code Status & VTE Plan VTE Prophylaxis Plan VTE Prophylaxis will be ordered: Yes (1) Type 2 diabetes mellitus Diabetes mellitus complication status: with hyperglycemia Diabetes mellitus lobsterman insulin use: unspecified lobsterman insulin use status Qualified Code(s): E11.65 - Type 2 diabetes mellitus with hyperglycemia (2) Hyperlipidemia Hyperlipidemia type: unspecified Qualified Code(s): E78.5 - Hyperlipidemia, unspecified
[2018-12-28] MEDS ORDERED: PHARMACIST DISCHARGE MED REC CONSULT PRN (18:26)
[2018-12-28] MEDS ORDERED: IPRATROPIUM BROMIDE/ALBUTEROL respimat INH INH PRN (18:26)
[2018-12-28] MEDS ORDERED: ACETAMINOPHEN 325 MG TAB PO PRN (18:26)
[2018-12-28] MEDS ORDERED: GADOBUTROL 65ML VIAL IV PRN (19:51)
--- NOTE | 2018-12-28 19:58 | Magnetic Resonance Report ---
MRI OF THE BRAIN COMBO CLINICAL HISTORY: Dizziness. Nausea. Left-sided weakness. COMPARISON STUDY: CT of the brain dated 12/28/2018. TECHNIQUE: MRI of the brain was performed utilizing various T1 and T2-weighted sequences in the axial , sagittal, and coronal planes. Contrast-enhanced sequences were acquired following the administratio n of 10 cc of Gadavist. FINDINGS: Brain parenchyma: There are scattered tiny foci of microangiopathic change. There is no hemorrhage or mass effect. There is no restricted diffusion to suggest acute ischemia. No enhancing mass lesion is identified on the postcontrast images. Orellana-white matter differentiation is preserved. No extra-axia l fluid collection is seen. The cerebellar tonsils are normal in configuration. Ventricles, sulci, and cisterns: Normal in configuration. Cavum septum pellucidum is incidentally not ed. Pituitary and sella: Unremarkable. Intracranial vasculature: Normal flow voids are maintained at the skull base. Orbits: The bony orbits are grossly intact. Orbital contents are normal in appearance. Sinuses and mastoids: The paranasal sinuses are clear. There is a small left mastoid effusion. Calvarium: Unremarkable. Cervical cord: Partially visualized cervical spinal cord is normal in morphology and signal intensity . IMPRESSION: There is no acute intracranial abnormality. Electronically signed by: Zackary Reddy M.D. 12/28/2018 7:57 PM
[2018-12-28] MEDS ORDERED: HEPARIN IV BOLUS 6,000 UNITS in SYRINGE 0 ML IV ONE (20:00)
--- NOTE | 2018-12-28 20:12 | Ultrasound Report ---
ULTRASOUND OF THE CAROTID ARTERIES CLINICAL HISTORY: Left-sided paresthesia. COMPARISON STUDY: No priors. TECHNIQUE: Real-time, grayscale, and color Doppler sonography of the carotid arteries is performed. I mages are reviewed in the transverse and longitudinal planes. FINDINGS: Blood pressures were not assessed due to the presence of IV catheters. The carotid arteries are patent bilaterally and demonstrate antegrade flow. There is no significant a therosclerotic plaque identified. Normal doppler arterial waveforms are seen throughout. Velocity ed surements are listed below. Common carotid peak systolic velocity (cm/sec): RIGHT: 72 LEFT: 73 ICA proximal peak systolic velocity (cm/sec): RIGHT: 47 LEFT: 59 ICA mid peak systolic velocity (cm/sec): RIGHT: 73 LEFT: 71 ICA distal peak systolic velocity (cm/sec): RIGHT: 84 LEFT: 98 ICA/CC peak systolic ratio: RIGHT: 1.2 LEFT: 1.3 Antegrade flow was shown in the vertebral arteries. The external carotid arteries are patent. IMPRESSION: 1. There is no sonographic evidence of hemodynamically significant stenosis in the right or left tejeda tid arterial system. 2. Antegrade flow is shown in the vertebral arteries. Electronically signed by: Zackary Reddy M.D. 12/28/2018 8:11 PM
[2018-12-28] MEDS: Heparin Adult STANDARD Wt-Based Dextrose 5% 25,000 units/500 mL IV SCH (20:19)
[2018-12-28] MEDS: INSULIN GLARGINE SOLOSTAR 100 UNITS/ML 3 ML PEN SC SCH (21:15)
[2018-12-28] MEDS: FLUTICASONE/SALMETEROL 250/50 (ADVAIR) 14 PUFF/1 INHALER INH SCH (21:15)
[2018-12-28] MEDS: INSULIN ASPART 100 UNITS/ML 3 ML PEN SC SCH (21:15)
[2018-12-28] MEDS: METOPROLOL TARTRATE 50 MG TAB PO SCH (21:17)
[2018-12-29 03:18] LABS: Chol HDL Ratio 4; Cholesterol 87 mg/dl (0-200); HDL Cholesterol 25 mg/dl; LDL Cholesterol Calculated 33 mg/dl; Triglycerides 143 mg/dl (0-150); VLDL Cholesterol 29 mg/dl
[2018-12-29 03:23] LABS: Partial Thromboplastin Ratio 1.9
[2018-12-29 03:38] LABS: Partial Thromboplastin Time 50.5 Seconds (21.0-31.0)
[2018-12-29 06:04] LABS: Estimated Average Glucose 146 mg/dl; Hemoglobin A1C 6.7 % (4.5-5.6)
[2018-12-29] MEDS ORDERED: PERFLUTREN LIPID MICROSPHERE (DEFINITY) IV ONE (07:04)
[2018-12-29] MEDS: METOPROLOL TARTRATE 50 MG TAB PO SCH (08:45)
[2018-12-29] MEDS: INSULIN GLARGINE SOLOSTAR 100 UNITS/ML 3 ML PEN SC SCH (08:45)
[2018-12-29] MEDS: INSULIN ASPART 100 UNITS/ML 3 ML PEN SC SCH ×3 (08:46→17:06)
[2018-12-29] MEDS: FLUTICASONE/SALMETEROL 250/50 (ADVAIR) 14 PUFF/1 INHALER INH SCH (08:47)
[2018-12-29] MEDS ORDERED: ATORVASTATIN 20 MG TAB PO SCH (09:00)
[2018-12-29] MEDS ORDERED: ESCITALOPRAM OXALATE 10 MG TAB PO SCH (09:00)
[2018-12-29] MEDS ORDERED: ASPIRIN 81 MG ECTAB PO SCH (09:00)
--- NOTE | 2018-12-29 13:12 | Neurology Consultation ---
"Date of Consultation December 29, 2018 Assessment & Plan (1) Stroke-like symptom: 1. MRI - no acute findings 2. carotid doppler no significant stenosis 3. CXR - known pulmonary vascular congestion 4. sed rate 71 5. no history of migraine but anxiety - sounds like may have been anxiety related. 6. TTE- PFO with low risk embolism 7. a fib- rate controlled with metoprolol 8. SHAVONNE score is 5- should be evaluted by cards if not already done for antiplt vs anticoag- will defer to their recommendations follow with PCP for further medical management Supervising Physician Co-Signing Physician Notes I have seen and discussed above patient with Dr Tank Ramírez. Patient was seen and examined. Daughter at bedside who helps provide history. Patient has Paroxysmal Afib with no history of stroke or TIA. Admitted for episode of headache, blurred vision, taste changes, mouth numbness, and left sided numbness. Symptoms duration two hours. Patient back to baseline. MRI reviewed and Negative for acute ischemic stroke. Carotid US negative for high grade stenosis. On examine she is awake and alert. Speech is clear. Comprehension intact. Sensaiton is intact. No ataxia with finger to nose. Toes down going. I do not believe this episode yesterday was a TIA - possible presyncopal event Vs migraine aura Vs anxiety. Discussed with cardiology and recommend ASA for paroxysmal afib. Ok to discharge from neuro standpoint. Can follow up as needed with Neuro. History of Present Illness Reason for Consultation: left sided paresthesia Requesting Physician: No Martínez MD Attending Physician: No Martínez MD History of Present Illness Sameera is a 48 year old female patient with PMH DM2, HTN, Pafib, HTN, asthma, anemia who had the complaints of dizziness, headache, nausea, chest pain, and difficulty breathing. She woke feeling well. She got up to go to the bathroom to get ready for work and she developed dizziness, pressure in her head, and stumbled. She started to get ready for work, but the dizziness worsened with movement of head. She states her tongue was numb and either her upper or lower lip was numb and left side of her body felt numb and tingling without weakness and when she first stood up she was light headed. She went back to bed and rested for approximately 90 minutes and then was brought to the ED and her headache and numbness had improved there was some mild numbness in her left fingers, but otherwise denies any symptoms in the arm and left leg. The CP was like a pressure sensation, similar in nature to what she has experienced in the past associated with anxiety. She denies any recent fall or trauma. She does report a history of questionable atrial fibrillation, but states she was then advised to discontinue the blood thinners after a monitor. She has not been on any blood thinners or aspirin consistently for several months because of a bleeding issue. Denies CP, SOB, abdominal pain, current one sided weakness, numbness tingling, vision changes, bowel or bladder issues, no history of migraines. her only current complaint is being tired. Allergies Allergy/AdvReac Type Severity Reaction Status Date / Time Pork/Porcine Containing AdvReac Unknown Unknown Verified 12/28/18 15:17 Products red meat AdvReac Unknown Unknown Uncoded 12/28/18 15:17 Home Medications Home Medications Medication Instructions Recorded Confirmed Type fluticasone propion-salmeterol 1 inh INHALATION BID 02/19/18 12/28/18 History hydroxyzine pamoate 25 mg PO HS PRN 02/19/18 12/28/18 History metformin 1,000 mg PO BID 30 Days #60 tab 02/20/18 12/28/18 Rx Basaglar KwikPen U-100 Insulin 26 unit SUBCUT BID 07/24/18 12/28/18 History Combivent Respimat 1 puff INHALATION QID PRN 07/24/18 12/28/18 History atorvastatin 20 mg PO QAM 07/24/18 12/28/18 History metoprolol tartrate 50 mg PO BID 07/24/18 12/28/18 History escitalopram oxalate 10 mg PO DAILY 12/28/18 12/28/18 History aspirin [Ecotrin Low Strength] 81 mg PO QAM 80 Days #80 tab 12/29/18 Rx Patient History Medical History Paroxysmal atrial fibrillation (Chronic) Hypertension (Chronic) Asthma (Chronic) inhaler prn Anemia (Chronic) Chronic back pain (Chronic) Type 2 diabetes mellitus (Chronic) Anxiety (Chronic) no meds Hyperlipidemia (Chronic) Atrial fibrillation with RVR (Acute) Surgical History No history of previous surgery (Chronic) Family History Mother Diabetes Father Hypertension Brother Heart disease Other No family history of adverse response to anesthesia No pertinent family history Social History Preferred Language: [place] Communication Ability: Effective Hearing Ability: Normal Software Computer Specialist Required: Yes Beliefs That Will Affect Care: None marital status: Current Living Situation: Spouse current occupational status: employed current occupation: Self-employed with Feels Safe at Home: Yes Smoking Status: Never smoker Second Hand Exposure: Yes (as a child had relatives that smoked around her) ; Hx Alcohol Use: No Hx Substance Use: No Physical Exam Physical Exam: Physical Exam: Constitutional: BP 110/78 | Pulse 68 | Temp (Src) 96.4 (Tympanic) | Resp 12 | Wt 175 lbs 12.8 oz (79.742kg) | BMI 32.15 kg/m\\u00b2 | BSA 1.87 m\\u00b2, appearance over nourished healthy Ears, Nose, Mouth and Throat: mucous membranes moist, no injection and skin normal, eyes normal Cardiovascular: normal S-1 and S-2 and regular rate and rhythm Respiratory: clear to auscultation (CTA) and no rales, rhonchi or wheeze Musculoskeletal: no peripheral edema and good distal pulses Skin: no stigmata of neurocutaneous disease noted and normal and intact Eyes: extraocular muscles intact (EOMI) and pupils equal, round and reactive to light (PERRL) NEUROLOGIC EXAMINATION: Mental status: Alert and interactive Oriented to full date and location Oriented to person Speech fluent with no evidence of aphasia Cranial Nerves smile eye brow raise symmetric Reflexes: Deep tendon reflexes were symmetrical and graded 2/5. Sensory: light cool and vibration intact Coordination: finger to nose no bi pass, rapid hand movement intact Gait/Stance: Posture normal sitting up in bed ( out of bed to bathroom with minimal assistance) Motor: Negative for pronator drift of out stretched arms with eyes closed. Strength: hand grain thresher biceps triceps, 5/5 bilaterally hip flex plantar flex ext 5/5 bilaterally Results & Data Vital Signs (Past 12 Hours) Vital Signs Temp Pulse Pulse Resp BP Pulse Ox 12/29/18 10:59 36.8 C 62 18 113/70 98 12/29/18 08:00 64 12/29/18 07:28 36.5 C 55 L 18 125/76 97 12/29/18 04:00 36.5 C 53 L 16 125/72 97 Laboratory Results Abnormal lab results 12/28/18 12/28/18 12/28/18 Range/Units 12:56 12:56 12:56 Hgb 10.9 L (12.0-16.0) g/dL Hct 34.7 L (37-47) % MCV 77.6 L (80-100) fL MCH 24.4 L (25-34) pg MCHC 31.4 L (32-36) g/dL RDW Std Deviation 64.7 H (36.4-46.3) fL RDW Coeff of Jimenez 22.8 H (11.5-14.5) % MPV 11.2 H (7.4-10.4) fL Immature Gran # (Auto) 0.04 H (0.00-0.02) K/uL ESR (0-21) mm/hr PT 12.4 H (9.0-12.0) Seconds INR 1.2 H (0.9-1.1) APTT (21.0-31.0) Seconds Glucose 130 H (70-99) mg/dl POC Glucose (70-99) Hemoglobin A1c (4.5-5.6) % Total Bilirubin 1.2 H (0.2-1) mg/dl AST 12 L (15-37) U/L Globulin 4.4 H (2.5-4.0) gm/dl Albumin/Globulin Ratio 0.8 L (0.9-2) Urine pH (4.5-7.5) 12/28/18 12/28/18 12/28/18 Range/Units 12:56 12:56 14:00 Hgb (12.0-16.0) g/dL Hct (37-47) % MCV (80-100) fL MCH (25-34) pg MCHC (32-36) g/dL RDW Std Deviation (36.4-46.3) fL RDW Coeff of Jimenez (11.5-14.5) % MPV (7.4-10.4) fL Immature Gran # (Auto) (0.00-0.02) K/uL ESR 71 H (0-21) mm/hr PT (9.0-12.0) Seconds INR (0.9-1.1) APTT (21.0-31.0) Seconds Glucose (70-99) mg/dl POC Glucose (70-99) Hemoglobin A1c 6.7 H (4.5-5.6) % Total Bilirubin (0.2-1) mg/dl AST (15-37) U/L Globulin (2.5-4.0) gm/dl Albumin/Globulin Ratio (0.9-2) Urine pH >= 9.0 H (4.5-7.5) 12/28/18 12/29/18 12/29/18 Range/Units 20:33 02:36 07:25 Hgb (12.0-16.0) g/dL Hct (37-47) % MCV (80-100) fL MCH (25-34) pg MCHC (32-36) g/dL RDW Std Deviation (36.4-46.3) fL RDW Coeff of Jimenez (11.5-14.5) % MPV (7.4-10.4) fL Immature Gran # (Auto) (0.00-0.02) K/uL ESR (0-21) mm/hr PT (9.0-12.0) Seconds INR (0.9-1.1) APTT 50.5 H* (21.0-31.0) Seconds Glucose (70-99) mg/dl POC Glucose 157 H 140 H (70-99) Hemoglobin A1c (4.5-5.6) % Total Bilirubin (0.2-1) mg/dl AST (15-37) U/L Globulin (2.5-4.0) gm/dl Albumin/Globulin Ratio (0.9-2) Urine pH (4.5-7.5) 12/29/18 Range/Units 11:19 Hgb (12.0-16.0) g/dL Hct (37-47) % MCV (80-100) fL MCH (25-34) pg MCHC (32-36) g/dL RDW Std Deviation (36.4-46.3) fL RDW Coeff of Jimenez (11.5-14.5) % MPV (7.4-10.4) fL Immature Gran # (Auto) (0.00-0.02) K/uL ESR (0-21) mm/hr PT (9.0-12.0) Seconds INR (0.9-1.1) APTT (21.0-31.0) Seconds Glucose (70-99) mg/dl POC Glucose 175 H (70-99) Hemoglobin A1c (4.5-5.6) % Total Bilirubin (0.2-1) mg/dl AST (15-37) U/L Globulin (2.5-4.0) gm/dl Albumin/Globulin Ratio (0.9-2) Urine pH (4.5-7.5) Diagnostic Findings CT cervical spine- No acute osseous injury of the cervical spine. CT head-Mildly motion degraded exam without acute intracranial abnormality identified. CXR- Cardiomegaly with mild central pulmonary vascular congestion. This is similar to the prior study. MRI brain -There is no acute intracranial abnormality. Carotid doppler- There is no sonographic evidence of hemodynamically significant stenosis in the right or left carotid arterial system. Antegrade flow is shown in the vertebral arteries. TTE- 60-65% PFO low risk for embolus"
--- NOTE | 2018-12-29 14:13 | Hospitalist Progress Note ---
Date of Service December 29, 2018 Assessment & Plan (1) Paroxysmal atrial fibrillation: Presented with paroxysmal atrial fibrillation with rapid ventricular response. Converted to normal sinus after IV Cardizem Patient is continued with beta-maría elena: Metoprolol tartrate 50 mg twice daily Lytes & TSH normal. Cardiology consulted: Appreciate input Echo: Done today 12/29/2018 at 6:41 AM: Normal LV chamber size with mild concentric LVH. Normal LV systolic function, EF 60-65% No segmental left ventricular wall motion abnormalities noted. Normal diastolic function. No significant valvular pathology. Injection of contrast documented and in atrial shunt. A patent walter overall is present and there is low risk of embolism. GIVEN TRANSIENT EPISODE OF CARDIAC ARRHYTHMIA,-Per cardiology no need for chronic anticoagulation She can be discharged home with aspirin 81 mg p.o. daily (2) Stroke-like symptom: presented with Left-sided paresthesia associated with headache-symptoms has resolved Head CT negative. MRI Brain : no acute change Carotid Doppler : no hemodynamically significant stenosis ECHO as above appreciate Consult from Neurology Patient had no evidence of stroke, very low suspicion for TIA or any neurol ogical event, dizzy spell lightheadedness possible secondary to stress induced leading to transient episode of rapid A. fib Moderate to sinus Appreciate input from cardiology, no indication for chronic anticoagulation, patient will be discharged with aspirin 81 mg daily, outpatient follow-up with cardiology Dr. Fernandes (3) Hypertension: Pressure stable Continue metoprolol. (4) Asthma: Pulmonary status stable. No wheeze no shortness of breath, no cough (5) Type 2 diabetes mellitus: Diabetes mellitus type 2, managed with metformin and insulin. Random glucose 130. hemoglobin A1c. Metformin on hold during hospital stay Lantus/NovoLog per protocol. (6) Hyperlipidemia: Fasting lipid panel shows: Very well controlled lipid panel Total cholesterol 87/triglyceride 143/LDL 33/ HDL 25 Continue current dose of atorvastatin lipid panel should be checked annually (7) DVT prophylaxis: Ambulate, CODE STATUS: Full code (8) Discharge planning issues: Stable to be discharged home today Internal Medicine follow-up with Dr. Hermelinda Ramirez. Cardiology follow-up in 1 to 2 weeks on discharge Subjective No complaint of dizzy spells lightheadedness, no weakness or paresthesia speech is fluent, no needs dysphagia, Remains his normal sinus rhythm, no arrhythmia or ectopy noted on telemetry Denies of any shortness of breath chest heaviness, no shortness of breath or dyspnea on exertion Evaluated by neurology and cardiology team earlier No evidence of stroke or strokelike symptoms, per cardiology patient did not had episode of TIA Possible dizzy spell secondary to stress-induced Able to be discharged home with aspirin 81 mg by mouth daily Review of Systems Review of Systems: All systems reviewed & are unremarkable except as noted in HPI & below Physical Exam Constitutional: WD/WN, vitals as above no acute distress Eyes: PERRL, conjunctivae normal, anicteric sclerae ENMT: external ear and nose normal, oropharynx normal Neck: trachea midline, no thyromegaly Respiratory: normal respiratory effort, lungs clear to auscultation Cardiovascular: Rate/Rhythm: + irregularly irregular Heart Sounds: no gallop, no murmur and no cardiac rub Vessels: no JVD Extremities: normal capillary refill; no calf tenderness and no edema Gastrointestinal (Abdomen): normal bowel sounds, soft, nontender, no hepatosplenomegaly Musculoskeletal: Head/Neck/Chest: neck supple Extremities: strength 5/5 throughout; no cyanosis and no clubbing Skin: no rashes, warm and dry Psychiatric: Orientation: alert and oriented x 3 Affect: euthymic affect Lymphatic: no cervical lymphadenopathy Results & Data Vital Signs (Past 12 Hours) Vital Signs Temp Pulse Pulse Resp BP Pulse Ox 12/29/18 10:59 36.8 C 62 18 113/70 98 12/29/18 08:00 64 12/29/18 07:28 36.5 C 55 L 18 125/76 97 12/29/18 04:00 36.5 C 53 L 16 125/72 97 (1) Type 2 diabetes mellitus Diabetes mellitus complication status: with hyperglycemia Diabetes mellitus oil heaterman insulin use: unspecified oil heaterman insulin use status Qualified Code(s): E11.65 - Type 2 diabetes mellitus with hyperglycemia (2) Hyperlipidemia Hyperlipidemia type: unspecified Qualified Code(s): E78.5 - Hyperlipidemia, unspecified
[2018-12-29] MEDS: Heparin Adult STANDARD Wt-Based Dextrose 5% 25,000 units/500 mL IV SCH (14:57)
--- NOTE | 2018-12-29 16:38 | Consultation Report ---
DATE OF CONSULTATION: 12/29/2018 INPATIENT CARDIOLOGY CONSULTATION CONSULTATION REQUESTED BY: Dr. Martínez. REASON FOR CONSULTATION: Paroxysmal atrial fibrillation. HISTORY OF PRESENT ILLNESS: Mrs. Wiseman is a very pleasant 48-year-old woman who I have seen previously as an outpatient for history of paroxysmal atrial fibrillation. She presented to [facility] on 12/28/2018 with complaints of left-sided facial numbness. The patient states that she was in her normal state of health until she woke up on the morning of the . At that time, she went to the bathroom and suddenly developed severe posterior headache. This was rather severe and she became lightheaded with it and dizzy and had steady herself in the bathroom. She returned to her bed where she laid down and she became very, very dizzy while lying down, feeling as though the room was spinning around her. This intensified and she suddenly started noticing that she cannot feel her tongue. She notes that the left side of her face started becoming numb as well as the entire left side of her body. She became very concerned and then suddenly developed palpitations. She describes the palpitations as her usual sensation of her heart racing, it usually happens during times of extreme stress. She became concerned and presented to [facility] Emergency Department. Upon arrival, she was initially in normal sinus rhythm; however, quickly lapsed into atrial fibrillation with rapid ventricular response. She was only in atrial fibrillation for a short time and broke on her own after being placed on a diltiazem drip. She states that her other symptoms also resolved, the sensation on the left side of her body and left face returned as that of her tongue and the dizziness resolved. Currently, she states that she feels well. Her daughter is at the bedside and able to provide additional information. Otherwise, the patient states that she has noticed palpitations off and on over the last several months, usually when climbing stairs or doing any heavy lifting. Otherwise, she has been feeling well. She notes that she has been under some stress as of late due to her ongoing illness with her , over the past week she has been very happy because her children are scheduled to come into town to visit. PAST SURGICAL HISTORY: Denies. PAST MEDICAL HISTORY: 1. Paroxysmal atrial fibrillation in the setting of extreme emotional stress with a CHADS-VASc score of 2. 2. Diabetes. 3. Elevated BMI. 4. Hyperlipidemia. 5. Anxiety. 6. Anemia. 7. History of gastritis with positive H. pylori, previously treated. FAMILY HISTORY: Noncontributory. SOCIAL HISTORY: Denies any alcohol, tobacco or recreational drug use. She is and lives at home with her . 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 REVIEW OF SYSTEMS: As per HPI, all other systems reviewed and negative at this time. ALLERGIES: No known drug allergies. MEDICATIONS AN OUTPATIENT: 1. Metoprolol 25 mg b.i.d. 2. Lexapro daily. 3. Atorvastatin 20 mg daily. 4. Insulin as directed. 5. Metformin b.i.d. 6. Combivent inhaler. 7. Albuterol inhaler. PHYSICAL EXAMINATION: SIGNS: Temperature 37, pulse 58, respiratory rate 12, blood pressure 134/85. GENERAL: Awake, alert, oriented x3, no acute distress. HEENT: Normocephalic, atraumatic. Pupils equal, round, reactive to light and accommodation. Extraocular muscles intact. Anicteric sclerae. Moist mucous membranes. NECK: No JVD, no bruit. CARDIOVASCULAR: Regular. No S4. Normal S1 and S2. No S3. No murmurs, rubs or gallops. PULMONARY: Clear to auscultation bilaterally. No rales, rhonchi, or wheezing. ABDOMEN: Bowel sounds x4, soft. No rebound, guarding, tenderness. No organomegaly. EXTREMITIES: No clubbing, cyanosis or edema. +2 pedal pulses bilaterally. SKIN: Warm and dry. TEST RESULTS: Again, initial EKG upon presentation shows normal sinus rhythm at 60 beats per minute. Followup EKG done shows atrial fibrillation at 120 beats per minute at 1529. EKG on December 29 at 07:16 shows sinus bradycardia. MRI of the brain showed no acute intracranial abnormalities. Carotid Dopplers read as no sonographic evidence of hemodynamically significant stenosis. IMPRESSION: 1. Paroxysmal atrial fibrillation. 2. Dizziness, possibly vertigo. 3. Anxiety. 4. Left-sided numbness with a normal MRI. 5. Small PFO, incidentally discovered on echocardiogram today. RECOMMENDATIONS: It was my pleasure to see Mrs. Wiseman in consultation today. From a cardiac standpoint, given the very brief nature of her atrial fibrillation, I do not believe anticoagulation is indicated at this time, and given the pattern, I am starting to wonder if her atrial fibrillation is in stress-induced. So at this time, no anticoagulation is necessary; however, given the discovery of a PFO and the fact that her H. pylori infection has been successfully treated, she should be restarted on aspirin as she already has. Otherwise, given her dizziness, feeling as though the room is spinning when she is lying down, I am wondering if she may not be suffering from vertigo and she will be set up to see physical therapy as an outpatient. Otherwise, no further cardiac testing or intervention is necessary at this time and it is okay to discharge the patient to home and I will continue her outpatient dose of metoprolol. My office will call to arrange followup in approximately 6 weeks.
[2018-12-29] MEDS ORDERED: STROKE PATIENT DISCHARGE STA (17:15)
--- NOTE | 2018-12-29 19:34 | Discharge Summary ---
Date of Service December 29, 2018 Admission HPI Per Admitting Provider 48-year-old female followed by Dr. Kemi Crystal for Internal Medicine. History of paroxysmal atrial fibrillation, diabetes mellitus type 2, and other problems noted below. Hospitalized with atrial fibrillation in January 2018. Hypokalemic at that time. Managed with diltiazem infusion and converted to sinus rhythm. Transition to beta-blockade with metoprolol. Not anticoagulated because of low [id number] score. This morning around 9:30 AM she developed left-sided paresthesia and possible left-sided weakness. Symptoms associated with headache and dizziness. Also noted intermittent chest pressure, palpitations, and mild dyspnea. She took a low-dose aspirin. Came to the ED for evaluation. In the ED her symptoms improved without further intervention. Cardiac rhythm at time of presentation was normal sinus rhythm, but around 15;00 she was noted to be in atrial fibrillation with a rapid ventricular response. Cardizem infusion initiated. Principal Diagnosis Paroxysmal A. fib, no evidence of stroke or strokelike symptoms, no TIA Discharge Exam Constitutional WD/WN, vitals as above no acute distress Eyes PERRL, conjunctivae normal, anicteric sclerae ENMT external ear and nose normal, oropharynx normal Neck trachea midline, no thyromegaly Respiratory normal respiratory effort, lungs clear to auscultation Cardiovascular Rate/Rhythm: + irregularly irregular Heart Sounds: no gallop, no murmur and no cardiac rub Vessels: no JVD Extremities: normal capillary refill; no calf tenderness and no edema Gastrointestinal (Abdomen) normal bowel sounds, soft, nontender, no hepatosplenomegaly Musculoskeletal Head/Neck/Chest: neck supple Extremities: strength 5/5 throughout; no cyanosis and no clubbing Skin no rashes, warm and dry Psychiatric Orientation: alert and oriented x 3 Affect: euthymic affect Lymphatic no cervical lymphadenopathy Discharge Data Allergies Allergy/AdvReac Type Severity Reaction Status Date / Time Pork/Porcine Containing AdvReac Unknown Unknown Verified 12/28/18 15:17 Products red meat AdvReac Unknown Unknown Uncoded 12/28/18 15:17 Consultations 12/28/18 15:49 ED Decision to Admit Stat 12/28/18 18:26 Consult Case Management - Discharge Planning Routine Consult Neurology Routine 12/29/18 14:14 Consult Cardiology Routine Ordered Studies 12/28/18 13:34 CT cervical spine wo con Stat CT head/brain wo con Stat 12/28/18 15:14 MR brain wo/w con Stat 12/28/18 18:26 US carotid doppler BI Routine Hospital Course (1) Paroxysmal atrial fibrillation: Presented with paroxysmal atrial fibrillation with rapid ventricular response. Converted to normal sinus after IV Cardizem Patient is continued with beta-maría elena: Metoprolol tartrate 50 mg twice daily Lytes & TSH normal. Cardiology consulted: Appreciate input Echo: Done today 12/29/2018 at 6:41 AM: Normal LV chamber size with mild concentric LVH. Normal LV systolic function, EF 60-65% No segmental left ventricular wall motion abnormalities noted. Normal diastolic function. No significant valvular pathology. Injection of contrast documented and in atrial shunt. A patent walter overall is present and there is low risk of embolism. GIVEN TRANSIENT EPISODE OF CARDIAC ARRHYTHMIA,-Per cardiology no need for chronic anticoagulation She can be discharged home with aspirin 81 mg p.o. daily (2) Stroke-like symptom: presented with Left-sided paresthesia associated with headache-symptoms has resolved Head CT negative. MRI Brain : no acute change Carotid Doppler : no hemodynamically significant stenosis ECHO as above appreciate Consult from Neurology Patient had no evidence of stroke, very low suspicion for TIA or any neurological event, dizzy spell lightheadedness possible secondary to stress induced leading to transient episode of rapid A. fib Moderate to sinus Appreciate input from cardiology, no indication for chronic anticoagulation, patient will be discharged with aspirin 81 mg daily, outpatient follow-up with cardiology Dr. Fernandes (3) Hypertension: Pressure stable Continue metoprolol. (4) Asthma: Pulmonary status stable. No wheeze no shortness of breath, no cough (5) Type 2 diabetes mellitus: Diabetes mellitus type 2, managed with metformin and insulin. Random glucose 130. hemoglobin A1c. Metformin on hold during hospital stay Lantus/NovoLog per protocol. (6) Hyperlipidemia: Fasting lipid panel shows: Very well controlled lipid panel Total cholesterol 87/triglyceride 143/LDL 33/ HDL 25 Continue current dose of atorvastatin lipid panel should be checked annually (7) DVT prophylaxis: Ambulate, CODE STATUS: Full code (8) Discharge planning issues: Stable to be discharged home today Internal Medicine follow-up with Dr. Hermelinda Ramirez. Cardiology follow-up in 1 to 2 weeks on discharge Total Time Total Time Spent Total Time Spent (In Minutes): Approximately 45 minutes Total Time Includes: Examination of the Patient, Discharge Planning and Medication Reconciliation Discharge Plan Discharge Items Patient Disposition: Home - Self-Care Reason For Visit: ATRIAL FIB,STROKE-LIKE SYMPTOMS Discharge Diagnosis: A. FIB RVR/NO EVIDENCE OF STROKE Condition: Good Discharge Goals: Diagnostic testing and Therapeutic intervention Activity: Resume your previous activity Non-emergency contact: Primary Care Provider Call non-emergency contact if: you have any medication questions Follow-up/Referrals: Chris Fernandes DO [Physician] - 01/15/19 10:15 am Hermelinda Ramirez MD [Hospitalist] - 01/02/19 2:05 pm Diet: Heart Healthy Addtl Provider Instructions: TAKE ASPIRIN 81 MG DAILY -WITH FULL STOMACH Prescriptions: New aspirin [Ecotrin Low Strength] 81 mg Tablet,Delayed Release (Dr/Ec) 81 mg PO QAM 80 Days Qty: 80 RF: 0 Continued fluticasone propion-salmeterol 250-50 mcg/dose Blister With Device 1 inh INHALATION BID RF: 0 hydroxyzine pamoate 25 mg Capsule 25 mg PO HS PRN (Reason: Itching) RF: 0 metformin 1,000 mg Tablet 1,000 mg PO BID 30 Days Qty: 60 RF: 2 escitalopram oxalate 10 mg Tablet 10 mg PO DAILY RF: 0 metoprolol tartrate 25 mg Tablet 50 mg PO BID RF: 0 atorvastatin 20 mg tablet 20 mg PO QAM RF: 0 Basaglar KwikPen U-100 Insulin 100 unit/mL (3 mL) Insulin Pen 26 unit SUBCUT BID RF: 0 Combivent Respimat 20-100 mcg/actuation Mist 1 puff INHALATION QID PRN (Reason: Wheezing) RF: 0 Stand-Alone Forms: [facility] Discharge Orders: Discharge Order (Routine); Ordered 12/29/18 Ordered By: No Martínez Admission Data Admit Date/Time: 12/28/18 16:17 Attending Provider: No Martínez Admit Provider: Mello Lau Primary Care Provider: Kemi Crystal Other Providers: Mello Lau ; Tank Ramírez ; Chris Fernandes ; Kurt Prado ; Jules Hensley ; Randy Bose ; Vinny Ponce ; Ismael Ortega ; Nilam Osman ; Raegan Gonzalez Service: Telemetry Other Interventions: Discharge Summary Assessment (RN) Last Done: 12/29/18 17:24 DC Date/Time DO NOT enter until pt leaves facility: 12/29/18 18:31
== END 2018-12-29 18:31 | disposition home or self-care (01) | DRG 309 ==
LOC: ED 12:33 → 2E 16:17
DX: Q21.1 Atrial septal defect; Z79.84 Long term (current) use of oral hypoglycemic drugs; E11.65 Type 2 diabetes mellitus with hyperglycemia; I48.0 Paroxysmal atrial fibrillation; E87.6 Hypokalemia; E78.5 Hyperlipidemia, unspecified; R20.2 Paresthesia of skin; Z83.3 Family history of diabetes mellitus; I10 Essential (primary) hypertension; J45.909 Unspecified asthma, uncomplicated; R51 Headache; Z79.4 Long term (current) use of insulin